=== PATIENT | female | born 1940 | race Two or more races ===

== ENCOUNTER 2018-05-14 06:00 | Day surgery (SDC) | payer OTHER ==
[~2018-05-14 06:00] MED LIST: AMILODIPINE PO
[2018-05-14] MEDS ORDERED: NORVASC10 MG PO (16:26)
== END 2018-05-14 09:30 | disposition home or self-care (01) ==
LOC: AMB-ENDOS 06:00 → CIR.AMB 13:45
DX: C18.7 Malignant neoplasm of sigmoid colon (principal)

== ENCOUNTER 2018-05-14 09:51 | Emergency (ER) | payer OTHER ==
[~2018-05-14] VITALS: Ht 162.6 cm; Wt 68.0 kg
[2018-05-14] MEDS ORDERED: NORVASC10 MG PO (16:26)
== END 2018-05-15 14:29 | disposition home or self-care (01) ==
LOC: ER 09:51 → SURH 10:28 → SEC-K 10:28 → SURH 11:19 → ER 05-15 14:29 → SEC-K 05-15 18:23 → SURH 05-15 18:23
DX: C20 Malignant neoplasm of rectum (principal); K62.5 Hemorrhage of anus and rectum; I10 Essential (primary) hypertension; K62.89 Other specified diseases of anus and rectum; Z53.09 Procedure and treatment not carried out because of other contraindication
CPT/HCPCS: 72197

== ENCOUNTER 2018-12-26 12:39 | Inpatient (IN) | payer OTHER ==
[~2018-12-26] VITALS: Ht 162.6 cm; Wt 63.5 kg
[~2018-12-26 12:39] MED LIST changes: +NORVASC10 MG PO
[2019-01-03] MEDS ORDERED: AMLODIPINE-BEN1 EAC5 PO (13:54)
[2019-01-08] MEDS ORDERED: OXYC1TAB9 PO (11:31)
== END 2019-01-08 11:45 | disposition home or self-care (01) | DRG 330 ==
LOC: ER 12:39 → SEC-K 21:50 → MEDI 21:50
PROVIDERS: Surgery; ADMIT Internal Medicine
PROC: 4A12X4Z Monitoring of Cardiac Electrical Activity, External Approach (ICD-10-PCS; 2018-12-27)
PROC: 0DJ08ZZ Inspection of Upper Intestinal Tract, Via Natural or Artificial Opening Endoscopic (ICD-10-PCS; 2018-12-28)
PROC: 30233N1 Transfusion of Nonautologous Red Blood Cells into Peripheral Vein, Percutaneous Approach (ICD-10-PCS; 2018-12-28)
PROC: BD15YZZ Fluoroscopy of Upper GI using Other Contrast (ICD-10-PCS; 2019-01-02)
PROC: 0DQB4ZZ Repair Ileum, Percutaneous Endoscopic Approach (ICD-10-PCS; principal; 2019-01-04 18:00)
DX: K94.11 Enterostomy hemorrhage (principal); C20 Malignant neoplasm of rectum; N17.8 Other acute kidney failure; D62 Acute posthemorrhagic anemia; I10 Essential (primary) hypertension; E87.5 Hyperkalemia; K21.0 Gastro-esophageal reflux disease with esophagitis

== ENCOUNTER 2020-03-13 09:59 | Day surgery (SDC) | payer OTHER ==
[~2020-03-13 09:59] MED LIST changes: +AMLODIPINE-BEN1 EAC5 PO; +LOTREL 10-20 M1 EACH PO; +OXYC1TAB9 PO
[2020-03-13] MEDS ORDERED: ULTRACET PO (12:42)
== END 2020-03-13 15:00 | disposition home or self-care (01) ==
LOC: CIR.AMB 09:59
PROVIDERS: ATTEND Surgery
DX: C20 Malignant neoplasm of rectum (principal); Z20.828 Contact with and (suspected) exposure to other viral communicable diseases